=== PATIENT | male | born 1985 | race Caucasian/White ===

== ENCOUNTER 2016-07-07 09:32 | Day surgery (SDC) | payer MEDICAID ==
[2016-07-04 11:39] VITALS: BMI 27.1
[~2016-07-07 09:32] MED LIST: LACTATED RINGERS 1,000 ML IV SCH
[2016-07-07] MEDS ORDERED: LIDOCAINE 1% 20 ML VIAL (10MG/ML) FOR IV START INTRADERMA ONE (09:49)
[2016-07-07] MEDS ORDERED: LACTATED RINGERS 1,000 ML IV ONE (09:49)
[2016-07-07 09:53] VITALS: RESP 18; TEMP 98.3
[2016-07-07] MEDS ORDERED: PROPOFOL 10 MG/ML 20 ML VIAL IV ONE (10:43)
[2016-07-07] MEDS ORDERED: LIDOCAINE 1% INJ 10MG/ML (20 ML MDV) ONE (10:43)
--- NOTE | 2016-07-07 11:02 | P.PCN ---
Date of Procedure: 07/07/16 Procedure(s) Performed: BRIEF HISTORY: Patient is a 30-year-old pleasant 30-year-old white male, scheduled for an elective colonoscopy as a part of rectal bleeding and bloody mucus in the stools for the last 2 months duration. He was diagnosed with idiopathic proctitis in 2012 and is being maintained on Canasa suppositories and was doing well area for the last 2 months has about 2-3 bowel movements daily on recent blood or mucus in the stool. He denies any associated abdominal pain. PROCEDURE PERFORMED: Colonoscopy with biopsy. PREOPERATIVE DIAGNOSIS: History of fever the proctitis diagnosed in 2014, now with diarrhea and blood in the stool. IV sedation per Anesthesia. PROCEDURE: After informed consent was obtained, the patient, was brought into the endoscopy unit. IV conscious sedation was administered by Anesthesia under continuous monitoring. Initially the Olympus CF-160 flexible video colonoscope was then inserted in the rectum, gradually advanced into the cecum without any difficulty. Careful examination was performed as the scope was gradually being withdrawn. Ileocecal valve and the appendiceal orifice were visualized and appeared normal. Prep was excellent. Mucosa of the cecum, ascending colon, transverse colon, descending colon, sigmoid colon, appeared normal. There was active proctitis noted in the rectum extending up to 20 cm from the anal verge with mucosal erythema, friability and spontaneous oozing and biopsies were done from this area. Retroflexion was performed in the rectum and no lesions were seen. The patient tolerated the procedure well. IMPRESSION: Mild to moderate proctitis Rest of the colon appeared normal RECOMMENDATIONS: Findings of this examination were discussed with the patient as well as his family. He was advised to increase the Canasa suppositories to twice daily. He will follow with the office in a month. If there is no improvement we will prescribe topical steroid enemas..
[2016-07-07 11:37] VITALS: BP 148/73; PULSE 54
== END 2016-07-07 12:13 | disposition home or self-care (01) ==
LOC: ORWHC2ENDO 09:32
PROVIDERS: ATTEND Internal Medicine Gastroenterology
DX: K62.89 Other specified diseases of anus and rectum (principal); K52.9 Noninfective gastroenteritis and colitis, unspecified; Z79.899 Other long term (current) drug therapy; Z87.891 Personal history of nicotine dependence
CPT/HCPCS: 88305; 45380; J2001; J2704

== ENCOUNTER 2016-12-22 23:51 | Emergency (ER) | payer MEDICAID ==
[2016-12-22 23:55] VITALS: BP 135/84; PULSE 53; RESP 18; TEMP 97.6
[2016-12-23] MEDS ORDERED: DIPH,PERTUS(ACELL)TETVAC-LF 0.5 ML VIAL IM ONE (00:08)
[2016-12-23] MEDS ORDERED: CEPHALEXIN 500 MG CAP PO STA (00:13)
--- NOTE | 2016-12-23 00:15 | ED ---
Skin/Abscess/FB HPI - General Chief complaint: Skin/Abscess/Foreign Body Stated complaint: Fish Hook in Toe Time Seen by Provider: 12/22/16 23:59 Source: patient, RN notes reviewed Mode of arrival: ambulatory Limitations: no limitations - History of Present Illness Initial comments: 30-year-old male presents emergency Department chief complaint fishhook right foot fourth digit. Patient states that he accidentally kicked a hole while getting out. Patient states she's unsure when his last tetanus was. Patient has known severe painand bleeding at this time. Patient offers no complaints. - Related Data Home Medications Medication Instructions Recorded Confirmed Canasa (Unknown Dose) 1 dose PO DIRECTED 07/04/16 12/22/16 Previous Rx's Medication Instructions Recorded Cephalexin [Keflex] 500 mg PO Q6HR #28 cap 12/23/16 Allergies Allergy/AdvReac Type Severity Reaction Status Date / Time No Known Allergies Allergy Verified 12/22/16 23:55 Review of Systems ROS Statement: Those systems with pertinent positive or pertinent negative responses have been documented in the HPI. ROS Other: All systems not noted in ROS Statement are negative. Past Medical History Additional Past Medical History / Comment(s): COLITIS, BLOOD IN STOOL. History of Any Multi-Drug Resistant Organisms: None Reported Past Surgical History: No Surgical Hx Reported Additional Past Surgical History / Comment(s): COLONOSCOPY Past Anesthesia/Blood Transfusion Reactions: No Reported Reaction Past Psychological History: No Psychological Hx Reported Smoking Status: Former smoker Past Alcohol Use History: Rare Past Drug Use History: None Reported - Past Family History Mother Family Medical History: No Reported History General Exam Limitations: no limitations General appearance: alert, in no apparent distress Respiratory exam: Present: normal lung sounds bilaterally. Absent: respiratory distress, wheezes, rales, rhonchi, stridor Cardiovascular Exam: Present: regular rate, normal rhythm, normal heart sounds. Absent: systolic murmur, diastolic murmur, rubs, gallop, clicks Extremities exam: Present: other (Right foot fourth digit there is a piece of fish hook sticking of the digit with no active bleeding Refill less than 2 seconds is mild discomfort with palpation around the area.) Course Vital Signs 12/22/16 23:52 Temperature 97.6 F Pulse Rate 53 L Respiratory 18 Rate Blood Pressure 135/84 O2 Sat by Pulse 97 Oximetry Procedures - Procedures Initial comment: Foreign body removal: Fourth digit right foot 1% lidocaine without epinephrine was used to anesthetize the area 2 mL patient tolerated well patient complete relief of symptoms. Pliers were used to remove the fishhook by backing it out there is no significant injury to the tissue toes neurovascular intact patient' s toe was thoroughly cleansed and bacitracin applied. Medical Decision Making - Medical Decision Making 30-year-old male presented for fishhook in his foot. This was removed cleaned well and patient was discharged on antibiotics. Disposition Clinical Impression: Fishing hook foreign body Disposition: HOME SELF-CARE Condition: Stable Instructions: Puncture Wound (ED) Additional Instructions: Please return to the Emergency Department if symptoms worsen or any other concerns. Prescriptions: Cephalexin [Keflex] 500 mg PO Q6HR #28 cap Referrals: Devin Ernst DO [Primary Care Provider] - 1-2 days Time of Disposition: 00:15
== END 2016-12-23 00:35 | disposition home or self-care (01) ==
LOC: EC 23:51
DX: S90.454A Superficial foreign body, right lesser toe(s), initial encounter (principal); Z23 Encounter for immunization; Z87.891 Personal history of nicotine dependence; Z79.1 Long term (current) use of non-steroidal anti-inflammatories (NSAID); W20.8XXA Other cause of strike by thrown, projected or falling object, initial encounter
CPT/HCPCS: 90471; 90715; 99282

== ENCOUNTER 2019-12-18 09:35 | Day surgery (SDC) | payer BC, MEDICAID ==
[2019-12-16 16:12] VITALS: BMI 26.4
[~2019-12-18 09:35] MED LIST changes: +LIDOCAINE 1% (10MG/ML) FOR IV START INTRADERMA PRN
[2019-12-18 09:57] VITALS: TEMP 97.3
[2019-12-18] MEDS ORDERED: MIDAZOLAM 2 MG/2 ML VIAL ONE (10:53)
[2019-12-18] MEDS ORDERED: PROPOFOL 10 MG/ML 20 ML VIAL IV ONE (10:53)
--- NOTE | 2019-12-18 11:32 | P.PCN ---
Date of Procedure: 12/18/19 Description of Procedure: BRIEF HISTORY: Patient is a 33-year-old male with a medical history significant for ulcerative colitis diagnosed in 2013 who presents for outpatient colonoscopy for further evaluation. Patient reports worsening symptoms over the past few months. Patient was previously obtained on Canasa suppositories. He's required prednisone therapy 3 times in the past and reports that symptoms have remained refractory to therapy. He is also had rectal steroid therapy with no improvement in his symptoms. PROCEDURE PERFORMED: Colonoscopy with biopsy. PREOPERATIVE DIAGNOSIS: Ulcerative colitis. ESTIMATED BLOOD LOSS: Minimal. IV sedation per Anesthesia. PROCEDURE: After informed consent was obtained, the patient, was brought into the endoscopy unit. IV sedation was administered by Anesthesia under continuous monitoring. Digital rectal examination was normal. Initially the Olympus CF-190 flexible video colonoscope was then inserted in the rectum, gradually advanced into the cecum without any difficulty. Careful examination was performed as the scope was gradually being withdrawn. Ileocecal valve and the appendiceal orifice were visualized and appeared normal. Prep was excellent. Mucosa of the cecum, ascending colon, transverse colon, descending colon, appeared normal, there was erythema, friability and ulceration of the distal sigmoid colon and rectum beginning at 27 cm from the anal verge. Biopsies were taken of a normal- appearing terminal ileum, the left colon, the right colon, transverse colon and rectosigmoid. Retroflexion was performed secondary to erythema and inflammation. The patient tolerated the procedure well. IMPRESSION: Moderate colitis in the rectum and distal sigmoid. Biopsies of the terminal ileum, right colon, transverse colon, left colon and rectosigmoid. RECOMMENDATIONS: Findings of this examination were discussed with the patient. Okay to resume diet. Okay to resume medications. Await pathology from biopsies. Patient should follow-up in clinic in the next 1-2 weeks for discussion on escalation of therapy.
[2019-12-18 11:49] VITALS: RESP 16
[2019-12-18 12:18] VITALS: BP 128/74; PULSE 78
== END 2019-12-18 12:18 | disposition home or self-care (01) ==
LOC: ORWHC2ENDO 09:35
PROVIDERS: ATTEND Internal Medicine
DX: K51.90 Ulcerative colitis, unspecified, without complications (principal); Z87.891 Personal history of nicotine dependence; Z79.1 Long term (current) use of non-steroidal anti-inflammatories (NSAID); Z79.52 Long term (current) use of systemic steroids; Z98.890 Other specified postprocedural states
CPT/HCPCS: 88305; 45380; J2250; J2704

== ENCOUNTER → 2020-02-13 | Outpatient (CLI) | payer BC ==
[2020-02-13 13:13] LABS: Basophils % (A) 0 %; Eosinophils # (A) 0.1 k/uL (0-0.7); Eosinophils % (A) 1 %; HCT 46.9 % (39.0-53.0); HGB 14.9 gm/dL (13.0-17.5); Lymphocytes # (A) 1.8 k/uL (1.0-4.8); Lymphocytes % (A) 17 %; MCH 29.1 pg (25.0-35.0); MCHC 31.8 g/dL (31.0-37.0); MCV 91.4 fL (80.0-100.0); Monocytes # (A) 0.3 k/uL (0-1.0); Monocytes % (A) 3 %; Neutrophils # (A) 8.3 k/uL (1.3-7.7); Neutrophils % (A) 78 %; Platelet Count 331 k/uL (150-450); RBC 5.13 m/uL (4.30-5.90); WBC 10.6 k/uL (3.8-10.6)
[2020-02-13 19:58] LABS: ALT 22 U/L (10-49); AST 21 U/L (14-35); African American GFR (CKD) 75.4 (60.0-200.0); Alkaline Phosphatase 43 U/L (41-126); C Reactive Protein <0.4 mg/dL (0.0-0.8); Calcium 9.5 mg/dL (8.7-10.3); Carbon Dioxide 27.2 mmol/L (21.6-31.8); Chloride 109 mmol/L (96-109); Globulin 2.1 g/dL (1.6-3.3); Glucose 105 mg/dL (70-110); Non-African American GFR(CKD) 65.1 (60.0-200.0); Potassium 4.8 mmol/L (3.5-5.5); Sodium 140 mmol/L (135-145); Total Bilirubin 1.3 mg/dL (0.3-1.2); Total Protein 6.5 g/dL (6.2-8.2)
[2020-02-13 20:15] LABS: Erythrocyte Sedimentation Rate 2 mm/Hr (0-15)
[2020-02-13 20:25] LABS: Gliadin AB IgA, Deaminated NEGATIVE (NEGATIVE); Gliadin AB IgA, Unit 11.9 U/mL; Gliadin AB IgG, Deaminated NEGATIVE (NEGATIVE)
[2020-02-13 20:44] LABS: Hepatitis A Antibody IgM Non-Reactive (Non-Reactive); Hepatitis B Core IgM Non-Reactive (Non-Reactive); Hepatitis B Surface Antigen Non-Reactive (Non-Reactive); Hepatitis C IgG Antibody Non-Reactive (Non-Reactive)
== END | disposition home or self-care (01) ==
LOC: LABWHC1 11:29
PROVIDERS: ATTEND Physician Assistant
DX: K51.90 Ulcerative colitis, unspecified, without complications (principal)
CPT/HCPCS: 36415; 80053; 80074; 83516; 85025; 85652; 86140; 86480

== ENCOUNTER 2022-01-24 08:33 | Day surgery (SDC) | payer BC ==
[2022-01-19 15:45] VITALS: BMI 27.1
[2022-01-24 08:55] VITALS: TEMP 96.9
[2022-01-24] MEDS ORDERED: PROPOFOL 10 MG/ML 20 ML VIAL IV ONE (09:42)
--- NOTE | 2022-01-24 10:07 | P.PCN ---
Date of Procedure: 01/24/22 Procedure(s) Performed: BRIEF HISTORY: Patient is a 36-year-old pleasant white female scheduled for an elective colonoscopy as a part of surveillance of long-standing history of history of ulcerative colitis diagnosed in 2012. He is currently maintenance 11 injections every 8 weeks. He remains in clinical remission. PROCEDURE PERFORMED: Colonoscopy with random biopsies. PREOPERATIVE DIAGNOSIS: Long-standing history of ulcerative colitis diagnosed in 2012. IV sedation per Anesthesia. PROCEDURE: After informed consent was obtained, the patient, was brought into the endoscopy unit. IV sedation was administered by Anesthesia under continuous monitoring. Digital rectal examination was normal. Initially the Olympus CF-160 flexible video colonoscope was then inserted in the rectum, gradually advanced into the cecum without any difficulty. Careful examination was performed as the scope was gradually being withdrawn. Ileocecal valve and the appendiceal orifice were visualized and appeared normal. Prep was excellent. Mucosa of the cecum, ascending colon, transverse colon, descending colon, sigmoid colon, and rectum appeared normal. Random biopsies were done at every 10 cm intervals from cecum to rectum to rule out dysplasia. Retroflexion was performed in the rectum and no lesions were seen. The patient tolerated the procedure well. IMPRESSION: Normal-appearing colon from rectum to cecum with no evidence of active colitis or colorectal neoplasia. RECOMMENDATIONS: Findings of this examination were discussed with the patient as well as his family. He was advised to follow with the biopsy results. If the biopsies do not show any evidence of dysplasia he can have a repeat colo noscopy every 2 years..
[2022-01-24 10:38] VITALS: BP 102/55; PULSE 51; RESP 17
== END 2022-01-24 10:50 | disposition home or self-care (01) ==
LOC: ORWHC2ENDO 08:33
PROVIDERS: ATTEND Internal Medicine Gastroenterology
DX: Z12.11 Encounter for screening for malignant neoplasm of colon (principal); K51.90 Ulcerative colitis, unspecified, without complications; Z79.899 Other long term (current) drug therapy; Z87.891 Personal history of nicotine dependence; Z82.49 Family history of ischemic heart disease and other diseases of the circulatory system
CPT/HCPCS: 88305; 45380; J2704

== ENCOUNTER 2024-04-11 10:45 | Day surgery (SDC) | payer BC ==
[2024-04-09 10:24] VITALS: BMI 27.1
[~2024-04-11 10:45] MED LIST changes: -LACTATED RINGERS 1,000 ML IV SCH
[2024-04-11 11:54] VITALS: TEMP 97
[2024-04-11] MEDS: LACTATED RINGERS 1,000 ML IV SCH (11:56)
[2024-04-11] MEDS: IV FLUID CONTINUATION 1,000 ML IV ONE (12:00)
[2024-04-11] MEDS ORDERED: PROPOFOL 10 MG/ML 20 ML VIAL IV ONE (13:27)
--- NOTE | 2024-04-11 13:43 | P.PCN ---
Date of Procedure: 04/11/24 Procedure(s) Performed: BRIEF HISTORY: Patient is a 38-year-old pleasant white male scheduled for an elective colonoscopy as a part of screening for colon cancer History of ulcerative colitis diagnosed in 2012. He is presently maintained on Stelara injections every 8 weeks and remains in clinical remission PROCEDURE PERFORMED: Colonoscopy with random biopsies. PREOPERATIVE DIAGNOSIS: Screening for colon cancer/longstanding history of ulcerative colitis. IV sedation per Anesthesia. PROCEDURE: After informed consent was obtained, the patient, was brought into the endoscopy unit. IV sedation was administered by Anesthesia under continuous monitoring. Digital rectal examination was normal. Initially the Olympus CF-160 flexible video colonoscope was then inserted in the rectum, gradually advanced into the cecum without any difficulty. Careful examination was performed as the scope was gradually being withdrawn. Ileocecal valve and the appendiceal orifice were visualized and appeared normal. Prep was excellent. Mucosa of the cecum, ascending colon, transverse colon, descending colon, sigmoid colon, and rectum appeared normal. Biopsies were done at every 10 cm intervals from rectum to cecum rule out dysplasia retroflexion was performed in the rectum and no lesions were seen. The patient tolerated the procedure well. IMPRESSION: Normal-appearing colon from rectum to cecum with no evidence of active colitis or colorectal neoplasia. RECOMMENDATIONS: Findings of this examination were discussed with the patient as well as his family. He was advised to follow-up with the biopsy results.. The biopsy does not show any evidence of dysplasia, repeat a colonoscopy in 2 years
[2024-04-11 14:03] VITALS: BP 120/59; PULSE 59; RESP 18
== END 2024-04-11 14:14 | disposition home or self-care (01) ==
LOC: ORWHC2ENDO 10:45
PROVIDERS: ATTEND Internal Medicine Gastroenterology
DX: K62.89 Other specified diseases of anus and rectum (principal); K51.90 Ulcerative colitis, unspecified, without complications; Z79.899 Other long term (current) drug therapy
CPT/HCPCS: 88305; 45380; J2704